=== PATIENT | male | born 1965 | race Caucasian/White ===

== ENCOUNTER → 2018-08-05 | Day surgery (SDC) | payer BC, OTHER ==
--- NOTE | 2018-08-05 16:06 | RADIOLOGY REPORT (SQ) ---
EXAM DESCRIPTION: ARTHRO SHOULDER INJECTION; FLUORO/NEEDLE PLACEMENT COMPLETED DATE/TIME: 08/05/2018 3:51 pm REASON FOR STUDY: M75.122 COMPLETE ROTATR-CUFF TEAR/RUPTR OF LEFT SHOULDER, NOT TRAUMA M75.122 COMP LETE ROTATR-CUFF TEAR/RUPTR OF LEFT SHOULDER, NO COMPARISON: None. FLUOROSCOPY TIME: 10 seconds of fluoroscopy was used. 2 images saved to PACS. LIMITATIONS: None. PROCEDURE: Procedure, risks, benefits and alternative explained to patient who then gave written con sent. The left shoulder was marked and a time-out was called for correct marking verification. Post erior entry site marked using fluoroscopic guidance. Shoulder prepped and draped using sterile techn ique. Local anesthesia achieved using 1% lidocaine injection. 22 gauge spinal needle introduced into the joint space under direct fluoroscopic visualization. Non-ionic contrast instilled to confirm in tra-articular position. Additional dilute non-ionic contrast instilled. Needle removed and entry si te covered with sterile bandage. No immediate complications noted. TECHNIQUE: Digital images acquired during fluoroscopy and stored on PACS. Patient immediately take n to the CT suite for additional imaging. INJECTION LOCATION: Posterior left shoulder. CONTRAST TYPE AND AMOUNT: 10 mL Omnipaque 300 saline mixture IMPRESSION: SUCCESSFUL NEEDLE PLACEMENT AND INJECTION FOR LEFT SHOULDER CT ARTHROGRAM USING POSTERIO R APPROACH. COMMENT: Quality ID 145: Final reports for procedures using fluoroscopy that document radiation exp osure indices, or exposure time and number of fluorographic images (if radiation exposure indices are not available) TECHNICAL DOCUMENTATION: JOB ID: [id number] [employer]- All Rights Reserved Reading location - IP/workstation name: [email or web address] [id number]
--- NOTE | 2018-08-05 16:06 | RADIOLOGY REPORT (SQ) ---
EXAM DESCRIPTION: ARTHRO SHOULDER INJECTION; FLUORO/NEEDLE PLACEMENT COMPLETED DATE/TIME: 08/05/2018 3:51 pm REASON FOR STUDY: M75.122 COMPLETE ROTATR-CUFF TEAR/RUPTR OF LEFT SHOULDER, NOT TRAUMA M75.122 COMP LETE ROTATR-CUFF TEAR/RUPTR OF LEFT SHOULDER, NO COMPARISON: None. FLUOROSCOPY TIME: 10 seconds of fluoroscopy was used. 2 images saved to PACS. LIMITATIONS: None. PROCEDURE: Procedure, risks, benefits and alternative explained to patient who then gave written con sent. The left shoulder was marked and a time-out was called for correct marking verification. Post erior entry site marked using fluoroscopic guidance. Shoulder prepped and draped using sterile techn ique. Local anesthesia achieved using 1% lidocaine injection. 22 gauge spinal needle introduced into the joint space under direct fluoroscopic visualization. Non-ionic contrast instilled to confirm in tra-articular position. Additional dilute non-ionic contrast instilled. Needle removed and entry si te covered with sterile bandage. No immediate complications noted. TECHNIQUE: Digital images acquired during fluoroscopy and stored on PACS. Patient immediately take n to the CT suite for additional imaging. INJECTION LOCATION: Posterior left shoulder. CONTRAST TYPE AND AMOUNT: 10 mL Omnipaque 300 saline mixture IMPRESSION: SUCCESSFUL NEEDLE PLACEMENT AND INJECTION FOR LEFT SHOULDER CT ARTHROGRAM USING POSTERIO R APPROACH. COMMENT: Quality ID 145: Final reports for procedures using fluoroscopy that document radiation exp osure indices, or exposure time and number of fluorographic images (if radiation exposure indices are not available) TECHNICAL DOCUMENTATION: JOB ID: [id number] [employer]- All Rights Reserved Reading location - IP/workstation name: [email or web address] [id number]
--- NOTE | 2018-08-06 13:22 | RADIOLOGY REPORT (SQ) ---
EXAM DESCRIPTION: CT LT UPPER EXTREMITY WITH COMPLETED DATE/TIME: 08/05/2018 3:42 pm REASON FOR STUDY: M75.122 COMPLETE ROTATR-CUFF TEAR/RUPTR OF LEFT SHOULDER, NOT TRAUMA M75.122 COMP LETE ROTATR-CUFF TEAR/RUPTR OF LEFT SHOULDER, NO COMPARISON: None. TECHNIQUE: Axial imaging performed through the leftshoulder with reformatted oblique coronal and obl ique sagittal imaging windowed for bone and soft tissues. All CT scanners at this facility use dose modulation, iterative reconstruction, and/or weight based d osing when appropriate to reduce radiation dose to as low as reasonably achievable (ALARA). [facility]: Dose Right [facility]: CareDose [facility]: Dose Right [facility]: Teradose 4D [facility]: [employer] RADIATION DOSE: CT Rad equipment meets quality standard of care and radiation dose reduction techniq ues were employed. CTDIvol: 15.6 mGy. DLP: 384 mGy-cm. mGy. 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 FINDINGS: SOFT TISSUES: No suggestion of axillary adenopathy or regional soft tissue mass along the left visualized chest wall or shoulder. No gross mediastinal mass. Cardiomegaly without pericardial effusion. Motion artifact left lung, otherwise clear. BONY ARCHITECTURE: No suggestion of fracture TBIs in bone lesion. GLENOHUMERAL JOINT: No subluxation or dislocation. No focal chondral lesions or significant osteophy neha detected. ACROMION AND AC JOINT: Type 1 acromion. No significant spurring. Subacromial space looks relatively preserved. No bulky AC joint overgrowth. ROTATOR CUFF: No high-grade partial or full thickness cuff tear detected. No overt suggestion of fat ty atrophy in the cuff muscles. GLENOID, LABRUM AND BICEPS: Irregular undercutting throughout the superior labrum to include the camilla ps anchor. Likely type 2 lesion. Biceps tendon intact. Remainder of the labrum is likely intact. OTHER: No other significant finding. IMPRESSION: 1. Superior labral tear with grossly intact biceps tendon. 2. No suggestion of significant rotator cuff tear. TECHNICAL DOCUMENTATION: JOB ID: [id number] Quality ID # [id number]: Final reports with documentation of one or more dose reduction techniques (e.g., Au tomated exposure control, adjustment of the mA and/or kV according to patient size, use of iterative reconstruction technique) 2010 [employer]- All Rights Reserved Reading location - IP/workstation name: [email or web address]
== END ==
LOC: RAD 14:34
PROVIDERS: ATTEND Orthopaedic Surgery
DX: M75.122 Complete rotator cuff tear or rupture of left shoulder, not specified as traumatic (principal)
CPT/HCPCS: 23350; 77002